=== PATIENT | male | born 1960 | race Hispanic/Latino ===

== ENCOUNTER → 2018-09-04 | Outpatient (CLI) | payer OTHER ==
--- NOTE | 2018-09-04 10:39 | Diagnostic Imaging Report ---
Examination: MRI SPINE CERVICAL WITHOUT CONTRAST History: 58 year old male with right hand numbness and neck pain. Comparison studies: None Technique: Sagittal T1, T2 and IR, axial T2 and axial gradient echo intravenous contrast: None Findings: Alignment: Straightening of normal lordosis. No scoliosis. Cervicomedullary junction: No abnormalities. Patent foramen magnum. Soft tissues: No T2 hyperintense inflammatory changes. Spinal cord: Normal in size and signal from the foramen magnum through T1. Vertebrae: No fractures, infection or neoplasm. Degenerative changes: C1-C2: No abnormalities. C2-C3: Central and right central disc protrusion, which contacts the ventral cord. No canal or foraminal stenosis. C3-C4: Right central disc protrusion superimposed on a diffuse disc osteophyte complex and mild right and moderate left uncovertebral arthropathy result in mild right and moderate left neural foraminal narrowing and mild canal stenosis. C4-C5: Diffuse disc osteophyte complex and moderate bilateral uncovertebral and facet arthropathy result in moderate right and severe left neural foraminal narrowing and moderate canal stenosis. C5-C6: Asymmetric to the left disc osteophyte complex, mild ligamentum flavum thickening and bilateral uncovertebral arthropathy result in severe bilateral neural foraminal narrowing and moderate canal stenosis. C6-C7: Diffuse disc osteophyte complex and moderate bilateral uncovertebral arthropathy result in moderate bilateral neural foraminal narrowing and mild canal stenosis. C7-T1: Grade I anterolisthesis without pars defect. Uncovering of a diffuse disc bulge. No foraminal or canal stenosis. IMPRESSION: 1. Degenerative changes from C2-C3 through C7-T1 with moderate canal stenosis at C4-C5 and C5-C6 and mild canal stenosis at C3-C4 and C6-C7. 2. Severe bilateral neural foraminal narrowing at C5-C6, which could be the cause of patient's symptoms. Additional foraminal stenosis includes moderate left neural foraminal narrowing at C3-C4, moderate right and severe left foraminal narrowing at C4-C5, and moderate bilateral foraminal narrowing at C6-C7. 3. Degenerative grade I anterolisthesis of C7 on T1. Signed by: Dr. Tami Baron M.D. on 09/04/2018 10:35 AM
== END ==
LOC: MRI 08:47
PROVIDERS: ATTEND Family Medicine
DX: M54.2 Cervicalgia (principal); M54.12 Radiculopathy, cervical region; M50.20 Other cervical disc displacement, unspecified cervical region; M50.30 Other cervical disc degeneration, unspecified cervical region
CPT/HCPCS: 72141

== ENCOUNTER → 2022-11-12 | Outpatient (CLI) | payer OTHER | LOC: MRI 11-11 12:56 | PROVIDERS: ATTEND Family Medicine | DX: M54.41 Lumbago with sciatica, right side (principal); M25.551 Pain in right hip | CPT/HCPCS: 72148 ==

== ENCOUNTER 2023-04-24 09:53 | Outpatient (RCR) | payer OTHER | END 2023-05-20 | LOC: PT 09:53 | PROVIDERS: ATTEND Neurological Surgery | DX: M48.061 Spinal stenosis, lumbar region without neurogenic claudication (principal) ==